=== PATIENT | female | born 1955 ===

== ENCOUNTER 2024-11-29 11:36 | Day surgery (SDC) | payer MEDICARE, OTHER ==
[2024-11-29] VITALS (31 sets, daily range): BP systolic 83–138; BP diastolic 54–88
[~2024-11-29] VITALS: Ht 165.1 cm; Wt 55.7 kg
--- NOTE | 2024-11-29 12:37 | NUR ---
History, Chart, Medications and Allergies reviewed before start of procedure. Pre-Op teaching done. Pt verbalizes understanding. Patient confirms NPO status and agrees with scheduled surgery. Patient states colon prep results LIGHT YELLOW.
--- NOTE | 2024-11-29 13:14 | NUR ---
PRE PROCEDURE NOTE PT AMBULATORY IN [facility]. Patient confirms NPO status and agrees with scheduled surgery. Pre-Op teaching done. Pt verbalizes understanding. Patient States Post-Procedure ride home has been arranged.
--- NOTE | 2024-11-29 13:48 | NUR ---
11/29/24 1348 Annemarie Swain CONFIRMED AND REVIEWED H&P, MEDCICATIONS, ALLERGIES, MEDICAL HISTORY, RESPIRATORY HISTORY, VITAL SIGNS, 3-LEAD EKG, CONSENTS, AND PHYSICIAN ORDERS. PATIENT CONFIRMS NPO STATUS AND AGREES WITH SCHEDULED PROCEDURE. MONITOR INTACT WITH CONTINUOUS PULSE OXIMETRY, CAPNOGRAPHY, 3-LEAD EKG, INTERMITTENT BP. SUPPLEMENTAL O2 TO BE TITRATED THROUGHOUT PROCEDURE TO MAINTAIN O2 SATURATION ABOVE 90%. PATIENT DETERMINED TO BE ASA APPROPRIATE FOR PROPOFOL SEDATION PRIOR TO START OF PROCEDURE BY DR. DIAZ.
[2024-11-29] MEDS ORDERED: Midazolam HCl 1MG / ML 2ML Vial ONE (14:13)
--- NOTE | 2024-11-29 15:06 | NUR ---
Patient States Post-Procedure ride home has been arranged. Discharge instructions reviewed with patient. Patient verbalizes understanding. Copy given to patient to take home. Patient up to Ambulate independently. Gait steady.
== END 2024-11-29 23:00 | disposition home or self-care (01) ==
LOC: ORSCMMR 11:36 → ORD 13:15 → ORSCMMR 23:00
DX: Z12.11 Encounter for screening for malignant neoplasm of colon (principal); K63.5 Polyp of colon; Z86.0101 Personal history of adenomatous and serrated colon polyps; E78.2 Mixed hyperlipidemia; Z79.899 Other long term (current) drug therapy
CPT/HCPCS: 88305; J2250; J2704; J7120